=== PATIENT | male | born 1950 | race Caucasian/White ===

== ENCOUNTER 2016-11-07 07:05 | Day surgery (SDC) | payer MEDICARE, OTHER ==
[2016-11-03 12:44] VITALS: BMI 30.5
[~2016-11-07 07:05] MED LIST: LACTATED RINGERS 1,000 ML IV SCH
[2016-11-07 07:18] VITALS: TEMP 97.7
[2016-11-07] MEDS ORDERED: PROPOFOL 10 MG/ML 20 ML VIAL IV ONE (08:48)
[2016-11-07] MEDS ORDERED: LIDOCAINE 1% INJ 10MG/ML (20 ML MDV) ONE (08:48)
--- NOTE | 2016-11-07 09:12 | P.PCN ---
Date of Procedure: 11/07/16 Procedure(s) Performed: Procedure: Colonoscopy and polypectomy. Preoperative diagnosis: Screening for neoplasia. Patient has history of polyps. Postoperative diagnosis: 1. Diverticulosis with no evidence of acute diverticulitis or strictures. 2. Small distal sigmoid polyp snared but no large polyps or cancer. 3. Low-grade internal hemorrhoids not bleeding at the time of this exam. Preparation: HalfLytely prep. Sedation: Was provided by anesthesia. Brief clinical history: The patient is a 66-year-old male who is referred for this evaluation for screening for neoplasia. He had a prior exam more than 10 years ago and he believes he had couple or 3 polyps removed at that time. He has no abdominal complaints, bleeding or anemia. Procedure: With the patient on his left lateral decubitus position and after informed consent and adequate sedation, the perianal area was inspected and it did not show any fissures or fistulas. There were no masses felt on digital rectal examination. The Olympus CFQ 160L video colonoscope was then inserted in the rectum in the usual fashion and advanced to the cecum. There were multiple diverticular orifices seen scattered in the sigmoid and a rare small orifice seen on the right side but there was no evidence of acute diverticulitis or strictures. There was a small polyp in the distal sigmoid which I snared and retrieved by suction but there were no large polyps or cancer. I retroflexed endoscope in the rectum before the endoscope was withdrawn. Low-grade internal hemorrhoids were noted but there was no bleeding. The patient tolerated the procedure well. Plan: The patient was reassured. Discussed dietary measures and local care for hemorrhoids. He will follow up with you as planned and I recommended repeat exam in 5 years.
[2016-11-07 09:45] VITALS: BP 175/78; PULSE 68; RESP 18
== END 2016-11-07 10:02 | disposition home or self-care (01) ==
LOC: ORWHC2ENDO 07:05
DX: Z12.11 Encounter for screening for malignant neoplasm of colon (principal); Z86.010 Personal history of colon polyps; K57.30 Diverticulosis of large intestine without perforation or abscess without bleeding; D12.5 Benign neoplasm of sigmoid colon; K64.8 Other hemorrhoids; K21.9 Gastro-esophageal reflux disease without esophagitis; I10 Essential (primary) hypertension; E78.5 Hyperlipidemia, unspecified; K58.1 Irritable bowel syndrome with constipation; Z79.82 Long term (current) use of aspirin; Z79.899 Other long term (current) drug therapy
CPT/HCPCS: 88305; 45385; J2001; J2704